=== PATIENT | female | born 1940 | race Caucasian/White ===

== ENCOUNTER → 2017-06-09 | Outpatient (CLI) | payer MEDICARE, OTHER ==
[2017-04-18 12:13] VITALS: BMI 33.5
[~2017-06-09] MED LIST: ACE3 PO; ACET650T40 PO; ACT PO; AMOX-559; AMOX125T10 PO; AMOX1TAB8 PO; ASCO-178 PO; ASP325 PO; AUG875 PO; CA C1TAB85 PO; CALC600T72 PO; CARB-127 PO; CEPH-13 PO; CEPH500C24 PO; CEPH500T7 PO; CHOL10005 PO; CIPR500T12 PO; CLOB15OI16 TP; DABI150C3 PO; DEN60I SUBQ; DIAZ-308 PO; DICL100G39 TP; DIPH-618 PO; DULO30CA6 PO; ENAL20TA99 PO; ESOM40CA42 PO; FERR160T22 PO; FERR220S15 PO; FLUT12HF2 INH; FLUT1DIS27 IH; FLUT9.9S; FURO-45 PO; FURO-47 PO; FURO40SO PO; GABA-547 PO; HYDR-385 PO; HYDR-4309 PO; IPRA3AMP37 IH; KET10 PO; LEVO-85 PO; LIDO76.5 TP; LOR5 PO; LOR5/325 PO; LYSI500T34 PO; METR-1 PO; MOMR ENA; MORP-181 PO; MULT-977 PO; MUPI15CR10 TP; Morphine Sulfate PO; NITR-105 PO; NYST15CR32 TP; OMEG-77 PO; OMEP-125; OMEP-125 PO; OMEP-137 PO; OMEP40CA48 PO; ONDA4TAB97 PO; OXYC-865 PO; OXYC10TA67 PO; OXYGEN INH; OXYGENHOME INH; PAIN MEDICATION; PANT40TA65 PO; PER PO; PNEU0.5D3 IM; PRAM0.2520 PO; PRE10 PO; PRE20 PO; PRED-1 PO; RIVA20TA PO; ROSU5TAB18 PEG; ROSU5TAB18 PO; SPIR25TA76 PO; SUCR1TAB51 PO; SUL500 PO; SULF-198 PO; SULF500T42; SULF500T48 PO; TIO18R IH; TRAM-627 PO; [UNRECOGNIZED DRUG - CODE] PO; [UNRECOGNIZED DRUG - CODE] PO; oxygen concentrator
[2017-06-09 15:09] LABS: PLATELET COUNT, AUTOMATED 229 K/uL (150-450)
[2017-06-09 15:18] LABS: INR 1.15
--- NOTE | 2017-06-09 15:32 | EKG ---
FACILITY: [facility] [place] PATIENT NAME: ATUL SPEAR : [id number] MR: [id number] V: [id number] EXAM DATE: ORDERING PHYSICIAN: DARLIN MITCHELL TECHNOLOGIST: Test Reason : Z01.818 Blood Pressure : / mmHG Vent. Rate : 074 BPM Atrial Rate : 036 BPM P-R Int : 000 ms QRS Dur : 084 ms QT Int : 430 ms P-R-T Axes : 000 082 -61 degrees QTc Int : 477 ms Atrial fibrillation Cannot rule out Anterior infarct , age undetermined ST and T wave abnormality, consider inferior ischemia and anterolateral ischemia Abnormal ECG Relatively unchanged from previous Confirmed by AMRIK SOMMERS ([id number]) on 06/10/2017 6:38:40 AM Referred By: Confirmed By:AMRIK SOMMERS
== END ==
LOC: LAB 14:35
PROVIDERS: ATTEND Neurological Surgery
DX: Z01.818 Encounter for other preprocedural examination (principal); Z01.812 Encounter for preprocedural laboratory examination; Z01.810 Encounter for preprocedural cardiovascular examination; I48.91 Unspecified atrial fibrillation; R94.31 Abnormal electrocardiogram [ECG] [EKG]; G89.29 Other chronic pain
CPT/HCPCS: 36415; 82040; 82247; 82310; 82374; 82435; 82565; 82947; 84075; 84132; 84155; 84295; 84450; 84460; 84520; 85025; 85610; 85730; 86850; 86900; 86901; 93005

== ENCOUNTER → 2017-08-13 | Outpatient (CLI) | payer MEDICARE, OTHER ==
[2017-04-18 12:13] VITALS: BMI 33.5
[2017-08-13 15:08] LABS: PLATELET COUNT, AUTOMATED 207 K/uL (150-450)
== END ==
LOC: LAB 14:40
PROVIDERS: ATTEND Neurological Surgery
DX: R29.898 Other symptoms and signs involving the musculoskeletal system (principal); Z96.89 Presence of other specified functional implants
CPT/HCPCS: 36415; 85025; 85651; 86140

== ENCOUNTER → 2017-10-09 | Outpatient (CLI) | payer MEDICARE, OTHER ==
[2017-04-18 12:13] VITALS: BMI 33.5
[~2017-10-09] MED LIST changes: +APIX5TAB PO; +ASCO-480 PO; +CALC-1 PO; +CHOL200074 PO; +CRAN500C11 PO; +DUL20 PO; +GUAI-652 PO; +GUAI600T57 PO; +MULT-27 PO; +NYST100016 PO; -OMEP-125; +PROBIOTIC PO; +[UNRECOGNIZED DRUG - CODE] PO; +[UNRECOGNIZED DRUG - OTHER] PO; +omega xl PO
== END ==
LOC: LAB 12:05
PROVIDERS: ATTEND Surgery
DX: C44.519 Basal cell carcinoma of skin of other part of trunk (principal)
CPT/HCPCS: 88305

== ENCOUNTER 2017-10-16 14:31 | Inpatient (IN) | payer MEDICARE, OTHER ==
[~2017-10-16] VITALS: Ht 156.2 cm; Wt 79.1 kg
[2017-10-16] VITALS (10 sets, daily range): BP systolic 111–128; BP diastolic 76–103; BMI 30.5
[2017-10-16] MEDS ORDERED: ONDANSETRON 4 MG/2 ML VIAL ONE (14:40)
--- NOTE | 2017-10-16 14:40 | ER Report ---
History and Physical Time Seen By MD: 14:40 Hx. of Stated Complaint: sick about a week. today she has a mental status change, lethargic, nausea, vomiting, "not acting normal" per her HPI/ROS This is a 76-year-old female with multiple medical problems. She was brought to the emergency department today by her family for increasing altered mental status the past 3-4 days. No trauma or falls. No fever chills. The patient is awake and alert per the family but seems much more fatigued the past few days. No nausea vomiting. The patient denies any complaints of pain. No shortness of breath. Remainder of the 14 system rev: Yes Allergies: Coded Allergies: rivaroxaban (Verified Allergy, Intermediate, RASH, 04/17/17) Quinolones (Verified Allergy, Mild, UNKNOWN, 04/17/17) fentanyl (Verified Allergy, Mild, UNKNOWN, 04/17/17) ciprofloxacin (Verified Allergy, Unknown, RASH, ITCHING, 04/17/17) influenza virus vaccine, specific (Verified Allergy, Unknown, UNKNOWN, ) Was told never to have another Uncoded Allergies: corticosteroids (Allergy, Unknown, 01/17/14) HAYFEVER (Adverse Reaction, Mild, WATERY EYES, 07/05/13) Home Meds Active Scripts Diazepam (DIAZEPAM) 5 Mg Tablet, 1 TAB PO BID Y for SPASMS, #30 TAB 0 Refills Prov:RUI HEMPHILL MD 10/14/17 Spironolactone (ALDACTONE) 25 Mg Tablet, 0.5 TAB PO DAILY, #45 TAB 3 Refills Prov:YESSENIA MILLER MD 10/09/17 Oxycodone Hcl/Acetaminophen (PERCOCET 5-325 MG TABLET) 1 Each Tablet, 1 TAB PO Q4-6H Y for PAIN, #120 TAB 0 Refills Prov:RUI HEMPHILL MD 10/05/17 Morphine Sulfate (MS CONTIN) 15 Mg Tablet.er, 15 MG PO Q12H, #60 TAB 0 Refills Prov:RUI HEMPHILL MD 10/05/17 Guaifenesin (MUCINEX) 600 Mg Tablet.er, 600 MG PO BID for 30 Days, #60 TAB Prov:YESSENIA MILLER MD 10/01/17 Duloxetine Hcl (CYMBALTA) 20 Mg Capcr, 20 MG PO QDAY for 30 Days, #30 CAP Prov:YESSENIA MILLER MD 10/01/17 Apixaban (ELIQUIS) 5 Mg Tablet, 1 TAB PO BID for 90 Days, #180 TAB 4 Refills Prov:YESSENIA MILLER MD 09/30/17 Diclofenac Sodium 1% Gel (VOLTAREN 1% GEL) 100 Gm Gel..gram., 4 G TP TID Y for pain, #1800 GM 1 Refill Apply 4 grams to right knee up to 3 times daily as needed for pain Prov:YESSENIA MILLER MD 09/29/17 Fluticasone/Salmeterol (ADVAIR 100-50 DISKUS) 1 Each Disk.w.dev, 1 EACH IH BID, #3 INHALER 3 Refills Prov:BIBI SPENCER APRN 07/03/17 Sulfasalazine (SULFASALAZINE) 500 Mg Tablet, 2 TAB PO QID, #500 TAB 3 Refills Take as directed Prov:RUI HEMPHILL MD 05/05/17 Sotalol Hcl (BETAPACE) 160 Mg Tablet, 0.5 TAB PO BID, #90 TAB 2 Refills Prov:BIBI SPENCER APRN 04/03/17 Pramipexole Di-Hcl (PRAMIPEXOLE DIHYDROCHLORIDE) 0.25 Mg Tablet, 0.25 MG PO QPM , #90 TAB 3 Refills Prov:BIBI SPENCER APRN 03/27/17 Furosemide (FUROSEMIDE) 20 Mg Tablet, 1 TAB PO QDAY, #90 TAB 2 Refills Prov:BIBI SPENCER APRN 12/15/16 Fluticasone Propionate (Flonase Allergy Relief) 9.9 Ml [place].susp, 2 EA NA DAILY , #3 BOTTLE 3 Refills Prov:BIBI SPENCER APRN 03/15/15 Reported Medications Guaifenesin/Pseudoephedrne Hcl (MUCINEX D ER 600-60 MG TABLET) 1 Each Tab.er.12h , 1 TAB PO BID 10/01/17 Phenazopyrid/Cran/Vit C/B.coag (Azo Urinary Tract Health Pack) 1 Each Tablet, 1 TAB PO DAILY 10/01/17 [Probiotic XL] No Conflict Check, 1 CAP PO DAILY 10/01/17 [Heart Strong] No Conflict Check, 1 CAP PO DAILY 10/01/17 [omega xl] 300 mg No Conflict Check, 1 CAP PO DAILY 10/01/17 Cranberry Extract (CRANBERRY) 500 Mg Capsule, 1 CAP PO DAILY, CAPSULE 10/01/17 Ascorbic Acid (VITAMIN C WITH MAYCOL HIPS) 1,000 Mg Tablet, 1 TAB PO DAILY 10/01/17 Mu-Vits-Min Th/Lycopene/Lutein (CENTRUM SILVER TABLET) 1 Each Tablet, 1 TAB PO DAILY 10/01/17 Calcium Carbonate/Vitamin D3 (CALTRATE 600 + D TABLET) 1 Each Tablet, 1 TAB PO DAILY Caltrate 600 Vit D3 800 10/01/17 Cholecalciferol (Vitamin D3) (VITAMIN D-3) 2,000 Unit Capsule, 1 CAP PO DAILY, CAPSULE 10/01/17 Omeprazole (OMEPRAZOLE) 20 Mg Capsule.dr, 1 CAP PO QDAY 04/06/17 Oxygen (OXYGEN) Inha, 1.5-2 L INH QDAY, L 04/06/17 Discontinued Scripts Spironolactone (ALDACTONE) 25 Mg Tablet, 0.5 TAB PO DAILY, #45 TAB 3 Refills Prov:BIBI SPENCER APRN TRANSPORTATION CONSULTANT-C 10/13/16 Reviewed Nurses Notes: Yes Old Medical Records Reviewed: Yes Hx Smoking: Yes Smoking Status: Former Smoker Exposure to Second Hand Smoke?: No Hx Substance Use Disorder: No Hx Alcohol Use: Yes Constitutional Vital Sign - Last 24 Hours 10/16/17 10/16/17 10/16/17 10/16/17 14:31 14:36 14:39 14:46 Temp 98.1 Pulse ??? 88 83 Resp 16 15 B/P (MAP) 122/87 122/87 (99) Pulse Ox 3 91 O2 Delivery Nasal Cannula 10/16/17 10/16/17 10/16/17 10/16/17 15:01 15:11 15:16 15:18 Pulse 97 88 Resp 15 13 B/P (MAP) 113/78 (90) Pulse Ox 90 89 O2 Flow Rate 3.0 10/16/17 10/16/17 10/16/17 10/16/17 15:30 15:31 15:46 16:00 Pulse 95 88 Resp 16 12 B/P (MAP) 105/86 (92) 119/84 (96) Pulse Ox 84 90 10/16/17 10/16/17 16:01 16:16 Pulse 96 97 Resp 14 13 Pulse Ox 89 89 Physical Exam General Appearance: The patient is alert, has no immediate need for airway protection and no signs of toxicity. Eyes: Pupils equal and round no pallor or injection. ENT, Mouth: Mucous membranes are moist. Lips are discolored and purple which family says is baseline Respiratory: There are no retractions, lungs are clear to auscultation. Cardiovascular: Irregular rate/irregular rhythm, systolic murmur Gastrointestinal: Abdomen is soft and non tender, no masses, bowel sounds normal. Neurological: awake and alert, no focal deficits Skin: Warm and dry, toes discolored b/l Neck is supple non tender. Extremities are nontender, nonswollen and have full range of motion. DIFFERENTIAL DIAGNOSIS: After history and physical exam differential diagnosis was considered for altered mental status including but not limited to hypoglycemia, infectious process, electrolyte abnormality, head injury and intoxicants. Medical Decision Making Data Points Result Diagram: 10/16/17 1430 10/16/17 1430 Laboratory Hematology Test 10/16/17 14:30 10/16/17 16:49 Red Blood Count 4.36 M/uL (4.17-5.56) Mean Corpuscular Volume 87.6 fL (80.0-96.0) Mean Corpuscular Hemoglobin 29.1 pg (26.0-33.0) Mean Corpuscular Hemoglobin Concent 33.2 g/dL (32.0-36.0) Red Cell Distribution Width 16.9 % (11.5-14.5) Mean Platelet Volume 8.3 fL (7.2-11.1) Neutrophils (%) (Auto) 76.2 % (39.4-72.5) Lymphocytes (%) (Auto) 5.7 % (17.6-49.6) Monocytes (%) (Auto) 15.3 % (4.1-12.4) Eosinophils (%) (Auto) 1.8 % (0.4-6.7) Basophils (%) (Auto) 1.0 % (0.3-1.4) Nucleated RBC Relative Count (auto) 0.1 /100WBC Neutrophils # (Auto) 5.6 K/uL (2.0-7.4) Lymphocytes # (Auto) 0.4 K/uL (1.3-3.6) Monocytes # (Auto) 1.1 K/uL (0.3-1.0) Eosinophils # (Auto) 0.1 K/uL (0.0-0.5) Basophils # (Auto) 0.1 K/uL (0.0-0.1) Nucleated RBC Absolute Count (auto) 0.00 K/uL Sodium Level 116 mmol/L (137-145) Potassium Level 4.4 mmol/L (3.5-5.0) Chloride Level 74 mmol/L (98-107) Carbon Dioxide Level 31 mmol/L (22-31) Blood Urea Nitrogen 5 mg/dl (7-18) Creatinine 0.60 mg/dl (0.52-1.04) Glomerular Filtration Rate Calc > 60.0 Random Glucose 99 mg/dl (75-110) Calcium Level 8.7 mg/dl (8.4-10.2) Magnesium Level 2.6 mg/dl (1.7-2.2) Total Bilirubin 1.5 mg/dl (0.2-1.3) Aspartate Amino Transf (AST/SGOT) 60 U/L (0-35) Alanine Aminotransferase (ALT/SGPT) 26 U/L (0-56) Alkaline Phosphatase 283 U/L (0-126) Total Creatine Kinase 90 U/L (30-135) Troponin I < 0.012 ng/ml Total Protein 7.9 gm/dl (6.3-8.2) Albumin 3.8 g/dl (3.5-5.0) Urine Color Mariela Urine Clarity Clear Urine pH 5.0 pH (4.8-9.5) Urine Specific [place] 1.020 Urine Protein Negative mg/dL (NEGATIVE) Urine Glucose (UA) Negative mg/dL (NEGATIVE) Urine Ketones Trace mg/dL (NEGATIVE) Urine Blood Negative (NEGATIVE) Urine Nitrite Negative (NEGATIVE) Urine Bilirubin Negative (NEGATIVE) Urine Urobilinogen Negative mg/dL (0.2-1.9) Urine Leukocyte Esterase Negative (NEGATIVE) Urine RBC None /HPF (0-2/HPF) Urine WBC 1 /HPF (0-5/HPF) Urine Squamous Epithelial Cells Few /LPF (NONE-FEW) Urine Bacteria Negative /HPF (NONE-FEW) Urine Hyaline Casts Few /LPF (NONE-FEW) Urine Mucus None /HPF (NONE-FEW) Urine Random Sodium 6 MEQ/L Chemistry Test 10/16/17 14:30 10/16/17 16:49 White Blood Count 7.4 k/uL (4.5-11.0) Red Blood Count 4.36 M/uL (4.17-5.56) Hemoglobin 12.7 g/dL (12.0-16.0) Hematocrit 38.2 % (34.0-47.0) Mean Corpuscular Volume 87.6 fL (80.0-96.0) Mean Corpuscular Hemoglobin 29.1 pg (26.0-33.0) Mean Corpuscular Hemoglobin Concent 33.2 g/dL (32.0-36.0) Red Cell Distribution Width 16.9 % (11.5-14.5) Platelet Count 275 K/uL (150-450) Mean Platelet Volume 8.3 fL (7.2-11.1) Neutrophils (%) (Auto) 76.2 % (39.4-72.5) Lymphocytes (%) (Auto) 5.7 % (17.6-49.6) Monocytes (%) (Auto) 15.3 % (4.1-12.4) Eosinophils (%) (Auto) 1.8 % (0.4-6.7) Basophils (%) (Auto) 1.0 % (0.3-1.4) Nucleated RBC Relative Count (auto) 0.1 /100WBC Neutrophils # (Auto) 5.6 K/uL (2.0-7.4) Lymphocytes # (Auto) 0.4 K/uL (1.3-3.6) Monocytes # (Auto) 1.1 K/uL (0.3-1.0) Eosinophils # (Auto) 0.1 K/uL (0.0-0.5) Basophils # (Auto) 0.1 K/uL (0.0-0.1) Nucleated RBC Absolute Count (auto) 0.00 K/uL Glomerular Filtration Rate Calc > 60.0 Calcium Level 8.7 mg/dl (8.4-10.2) Magnesium Level 2.6 mg/dl (1.7-2.2) Total Bilirubin 1.5 mg/dl (0.2-1.3) Aspartate Amino Transf (AST/SGOT) 60 U/L (0-35) Alanine Aminotransferase (ALT/SGPT) 26 U/L (0-56) Alkaline Phosphatase 283 U/L (0-126) Total Creatine Kinase 90 U/L (30-135) Troponin I < 0.012 ng/ml Total Protein 7.9 gm/dl (6.3-8.2) Albumin 3.8 g/dl (3.5-5.0) Urine Color Mariela Urine Clarity Clear Urine pH 5.0 pH (4.8-9.5) Urine Specific [place] 1.020 Urine Protein Negative mg/dL (NEGATIVE) Urine Glucose (UA) Negative mg/dL (NEGATIVE) Urine Ketones Trace mg/dL (NEGATIVE) Urine Blood Negative (NEGATIVE) Urine Nitrite Negative (NEGATIVE) Urine Bilirubin Negative (NEGATIVE) Urine Urobilinogen Negative mg/dL (0.2-1.9) Urine Leukocyte Esterase Negative (NEGATIVE) Urine RBC None /HPF (0-2/HPF) Urine WBC 1 /HPF (0-5/HPF) Urine Squamous Epithelial Cells Few /LPF (NONE-FEW) Urine Bacteria Negative /HPF (NONE-FEW) Urine Hyaline Casts Few /LPF (NONE-FEW) Urine Mucus None /HPF (NONE-FEW) Urine Random Sodium 6 MEQ/L Urinalysis Test 10/16/17 16:49 Urine Color Mar[place]a Urine Clarity Clear Urine pH 5.0 pH (4.8-9.5) Urine Specific [place] 1.020 Urine Protein Negative mg/dL (NEGATIVE) Urine Glucose (UA) Negative mg/dL (NEGATIVE) Urine Ketones Trace mg/dL (NEGATIVE) Urine Blood Negative (NEGATIVE) Urine Nitrite Negative (NEGATIVE) Urine Bilirubin Negative (NEGATIVE) Urine Urobilinogen Negative mg/dL (0.2-1.9) Urine Leukocyte Esterase Negative (NEGATIVE) Urine RBC None /HPF (0-2/HPF) Urine WBC 1 /HPF (0-5/HPF) Urine Squamous Epithelial Cells Few /LPF (NONE-FEW) Urine Bacteria Negative /HPF (NONE-FEW) Urine Hyaline Casts Few /LPF (NONE-FEW) Urine Mucus None /HPF (NONE-FEW) Urine Random Sodium 6 MEQ/L ED Course/Re-evaluation ED Course 76-year-old female with multiple medical problems presents to the emergency department with family for altered mental status and increasing fatigue over the past 3-4 days. The patient is alert and oriented and can hold a conversation , but does seem overly fatigued and slowed. No fever or chills, and no acute pain complaints. She has a sodium of 116 of an unknown cause. Urine electrolytes and osmols were sent to help with diagnosis. Her creatinine is normal. At this time there is an unknown source for her hyponatremia. This is to find the source of her symptoms. She will be admitted to the ICU, and is currently on gentle normal saline fluid replacement. Decision to Disposition Date: October 16, 2017 Decision to Disposition Time: 18:04 Depart Departure Latest Vital Signs Vital Signs Date Time Temp Pulse Resp B/P (MAP) Pulse Ox O2 Delivery O2 Flow Rate FiO2 10/16/17 16:16 97 13 89 10/16/17 16:00 119/84 (96) 10/16/17 15:11 3.0 10/16/17 14:36 98.1 Nasal Cannula Impression: Primary Impression: Hyponatremia Condition: Improved Disposition: Admitted from ER Referrals: YESSENIA MILLER MD (PCP) DANIELLE JESSICA MD October 16, 2017 14:40
[2017-10-16 16:15] LABS: PLATELET COUNT, AUTOMATED 275 K/uL (150-450)
--- NOTE | 2017-10-16 16:40 | RADIOLOGY IMAGING REPORT ---
FACILITY: [facility] PATIENT NAME: Stephanie Warner : 1940 MR: [id number] V: [id number] EXAM DATE: ORDERING PHYSICIAN: DANIELLE JESSICA TECHNOLOGIST: Location: [facility] [place] Patient: Stephanie Warner : 1940 Visit/Account:[id number] Date of Sevice: 10/16/2017 CHEST SINGLE AP COMPARISONS: 2 view chest dated April 17, 2017 ADDITIONAL PERTINENT HISTORY: Respiratory distress FINDINGS: Cardiomediastinal silhouette: Moderate cardiomegaly. This is stable from previous exam. Pulmonary vasculature: Atherosclerotic disease of the thoracic aortic arch. Otherwise negative Lung abarca: Scarring involving the right lung base. Opacity at the left lung base is stable from p revious exam likely representing either scarring or atelectatic change related to the large hiatal he rnia. Pleural spaces: Findings suggestive of pleural thickening at the left lung base. Osseous structures: Osteoarthritic changes involving both shoulders. Surrounding soft tissues: Intrathecal stimulating device in place. IMPRESSION: No change since previous exam Report Dictated By: Vish Colby MD at 10/16/2017 4:35 PM Report E-Signed By: Vish Colby MD at 10/16/2017 4:37 PM WSN:[id number]
--- NOTE | 2017-10-16 16:42 | EKG ---
FACILITY: [facility] PATIENT NAME: ATUL SPEAR : [id number] MR: [id number] V: [id number] EXAM DATE: ORDERING PHYSICIAN: DANIELLE JESSICA TECHNOLOGIST: AALIYAH Dalton Reason : Blood Pressure : / mmHG Vent. Rate : 086 BPM Atrial Rate : 312 BPM P-R Int : 000 ms QRS Dur : 086 ms QT Int : 406 ms P-R-T Axes : 000 106 058 degrees QTc Int : 485 ms Atrial fibrillation Basically not able to interpret this EKG due to interference. When compared with ECG of 09-JUN-2017 15:18, ST no longer depressed in Inferior leads ST now depressed in Lateral leads Nonspecific T wave abnormality has replaced inverted T waves in Inferior leads Confirmed by ELLI SMITH ([id number]) on 10/16/2017 8:45:37 PM Referred By: JASKARAN Confirmed By:ELLI SMITH
[2017-10-16] MEDS ORDERED: NS(*) 0.9% 1000 ML BAG 1,000 ML IV ONE (16:50)
--- NOTE | 2017-10-16 16:53 | RADIOLOGY IMAGING REPORT ---
FACILITY: [facility] PATIENT NAME: Stephanie Warner : 1940 MR: [id number] V: [id number] EXAM DATE: ORDERING PHYSICIAN: DANIELLE JESSICA TECHNOLOGIST: Location: [facility] [place] Patient: Stephanie Warner : 1940 Visit/Account:[id number] Date of Sevice: 10/16/2017 HEAD W/O CONTRAST Provided history: Altered mental status Additional pertinent history: none TECHNIQUE: Imaging was obtained from the skull base through the vertex without intravenous contrast. Source images were reformatted in the coronal sagittal planes. One of the following dose optimization techniques was utilized in the performance of this exam: Autom ated exposure control; adjustment of the mA and/or kV according to the patient's size; or use of an i terative reconstruction technique. Specific details can be referenced in the facility's radiology CT exam operational policy. 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 Hemorrhage: None Masses / edema: None White matter: Moderate nonspecific peripheral white matter hypodensities there is also generalized d ecreased density in the white matter throughout both hemispheres of questionable significance. Vessels: Although the distal right middle cerebral artery is relatively dense, it is isodense with b lood in the venous sinuses and probably not reflective of thrombosis. Extra-axial: None significant Calvarium / scalp: Negative Skull base: negative Visualized sinuses / orbits: Broad air-fluid level right maxillary sinus. Focal mucosal prominence o bscures the right OMC. IMPRESSION: 1. No evidence of hemorrhage, mass or acute ischemia. 2. White matter changes that are nonspecific but likely from long-standing small vessel disease. 3. Potential acute sinusitis right maxillary sinus. Correlate clinically. Report Dictated By: Cade Overton MD at 10/16/2017 4:44 PM Report E-Signed By: Cade Overton MD at 10/16/2017 4:50 PM WSN:[id number]
--- NOTE | 2017-10-16 18:30 | History & Physical ---
History of Present Illness Chief Complaint Lethargic History of Present Illness This patient was brought to the emergency department by family members for increasing lethargy. Her family reports that she has been more lethargic over the last several days. They have also reported that she has had decreased intake of food and fluids. They have not noted any nausea or diarrhea. History Problems: (1) Ulcerative colitis Status: Chronic (2) Atrial fibrillation Status: Chronic (3) COPD (chronic obstructive pulmonary disease) Status: Chronic (4) Moderate to severe pulmonary hypertension Status: Chronic (5) Depression (6) S/P insertion of spinal cord stimulator Status: Chronic (7) H/O total colectomy Status: Chronic Home Meds Active Scripts Diazepam (DIAZEPAM) 5 Mg Tablet, 1 TAB PO BID Y for SPASMS, #30 TAB 0 Refills Prov:RUI HEMPHILL MD 10/14/17 Spironolactone (ALDACTONE) 25 Mg Tablet, 0.5 TAB PO DAILY, #45 TAB 3 Refills Prov:YESSENIA MILLER MD 10/09/17 Oxycodone Hcl/Acetaminophen (PERCOCET 5-325 MG TABLET) 1 Each Tablet, 1 TAB PO Q4-6H Y for PAIN, #120 TAB 0 Refills Prov:RUI HEMPHILL MD 10/05/17 Morphine Sulfate (MS CONTIN) 15 Mg Tablet.er, 15 MG PO Q12H, #60 TAB 0 Refills Prov:RUI HEMPHILL MD 10/05/17 Guaifenesin (MUCINEX) 600 Mg Tablet.er, 600 MG PO BID for 30 Days, #60 TAB Prov:YESSENIA MILLER MD 10/01/17 Duloxetine Hcl (CYMBALTA) 20 Mg Capcr, 20 MG PO QDAY for 30 Days, #30 CAP Prov:YESSENIA MILLER MD 10/01/17 Apixaban (ELIQUIS) 5 Mg Tablet, 1 TAB PO BID for 90 Days, #180 TAB 4 Refills Prov:YESSENIA MILLER MD 09/30/17 Diclofenac Sodium 1% Gel (VOLTAREN 1% GEL) 100 Gm Gel..gram., 4 G TP TID Y for pain, #1800 GM 1 Refill Apply 4 grams to right knee up to 3 times daily as needed for pain Prov:YESSENIA MILLER MD 09/29/17 Fluticasone/Salmeterol (ADVAIR 100-50 DISKUS) 1 Each Disk.w.dev, 1 EACH IH BID, #3 INHALER 3 Refills Prov:BIBI SPENCER APRN 07/03/17 Sulfasalazine (SULFASALAZINE) 500 Mg Tablet, 2 TAB PO QID, #500 TAB 3 Refills Take as directed Prov:RUI HEMPHILL MD 05/05/17 Sotalol Hcl (BETAPACE) 160 Mg Tablet, 0.5 TAB PO BID, #90 TAB 2 Refills Prov:BIBI SPENCER APRN 04/03/17 Pramipexole Di-Hcl (PRAMIPEXOLE DIHYDROCHLORIDE) 0.25 Mg Tablet, 0.25 MG PO QPM , #90 TAB 3 Refills Prov:BIBI SPENCER APRN 03/27/17 Furosemide (FUROSEMIDE) 20 Mg Tablet, 1 TAB PO QDAY, #90 TAB 2 Refills Prov:BIBI SPENCER APRN 12/15/16 Fluticasone Propionate (Flonase Allergy Relief) 9.9 Ml [place].susp, 2 EA NA DAILY , #3 BOTTLE 3 Refills Prov:BIBI SPENCER APRN 03/15/15 Reported Medications Guaifenesin/Pseudoephedrne Hcl (MUCINEX D ER 600-60 MG TABLET) 1 Each Tab.er.12h , 1 TAB PO BID 10/01/17 Phenazopyrid/Cran/Vit C/B.coag (Azo Urinary Tract Health Pack) 1 Each Tablet, 1 TAB PO DAILY 10/01/17 [Probiotic XL] No Conflict Check, 1 CAP PO DAILY 10/01/17 [Heart Strong] No Conflict Check, 1 CAP PO DAILY 10/01/17 [omega xl] 300 mg No Conflict Check, 1 CAP PO DAILY 10/01/17 Cranberry Extract (CRANBERRY) 500 Mg Capsule, 1 CAP PO DAILY, CAPSULE 10/01/17 Ascorbic Acid (VITAMIN C WITH MAYCOL HIPS) 1,000 Mg Tablet, 1 TAB PO DAILY 10/01/17 Mu-Vits-Min Th/Lycopene/Lutein (CENTRUM SILVER TABLET) 1 Each Tablet, 1 TAB PO DAILY 10/01/17 Calcium Carbonate/Vitamin D3 (CALTRATE 600 + D TABLET) 1 Each Tablet, 1 TAB PO DAILY Caltrate 600 Vit D3 800 10/01/17 Cholecalciferol (Vitamin D3) (VITAMIN D-3) 2,000 Unit Capsule, 1 CAP PO DAILY, CAPSULE 10/01/17 Omeprazole (OMEPRAZOLE) 20 Mg Capsule.dr, 1 CAP PO QDAY 04/06/17 Oxygen (OXYGEN) Inha, 1.5-2 L INH QDAY, L 04/06/17 Discontinued Scripts Spironolactone (ALDACTONE) 25 Mg Tablet, 0.5 TAB PO DAILY, #45 TAB 3 Refills Prov:BIBI SPENCER APRN [employer]-C 10/13/16 Allergies: Coded Allergies: rivaroxaban (Verified Allergy, Intermediate, RASH, 04/17/17) Quinolones (Verified Allergy, Mild, UNKNOWN, 04/17/17) fentanyl (Verified Allergy, Mild, UNKNOWN, 04/17/17) ciprofloxacin (Verified Allergy, Unknown, RASH, ITCHING, 04/17/17) influenza virus vaccine, specific (Verified Allergy, Unknown, UNKNOWN, ) Was told never to have another Uncoded Allergies: corticosteroids (Allergy, Unknown, 01/17/14) HAYFEVER (Adverse Reaction, Mild, WATERY EYES, 07/05/13) Hx Smoking: Yes Smoking Status: Former Smoker Exposure to Second Hand Smoke?: No Caffeine Intake: Coffee Caffeine/Cups Per Day: 1 Hx Alcohol Use: Yes Hx Substance Use Disorder: No Social Drug Use: Never Review of Systems All Systems Reviewed/Normal: Yes, Except as Noted Neurological: Confusion Exam Vital Signs Vital Signs Date Time Temp Pulse Resp B/P (MAP) Pulse Ox O2 Delivery O2 Flow Rate FiO2 10/16/17 16:16 97 13 89 10/16/17 16:00 119/84 (96) 10/16/17 15:11 3.0 10/16/17 14:36 98.1 Nasal Cannula Neuro: Other (Lethargic, but no focal deficits.) Eyes: PERRLA Cardiovascular: Regular Rate and Rhythm Respiratory: Clear to Auscultation GI: Abd Soft and Non-Tender Extremities: No Edema Integumentary: No Cyanosis Medical Decision Making Data Points Result Diagram: 10/16/17 1430 10/16/17 1430 Item Value Date Time Urine Specific [place] 1.020 10/16/17 164 Urine Osmolality 468 mosm/K L 10/16/17 164 Urine Random Sodium 6 MEQ/L 10/16/17 164 EKG / Imaging EKG Interpretation EKG reviewed. Imaging CT head and chest x-ray reviewed. Assessment and Plan Problems: (1) Hyponatremia Status: Acute Assessment & Plan: She was found to have a severely low serum sodium. This is likely secondary to dehydration and compounded by her history of colectomy and diuretic use. She has received normal saline in the emergency department. We will repeat a chemistry panel once she arrives to the floor and then determine if 3% saline is required. (2) Altered mental status Assessment & Plan: Likely secondary to above. (3) Atrial fibrillation and flutter Status: Chronic Assessment & Plan: She is on chronic treatment with sotalol and Eliquis. (4) Moderate to severe pulmonary hypertension Status: Chronic Assessment & Plan: An echocardiogram for April 2017 showed an elevated right ventricular pressure of 111mmHg. (5) Depression Assessment & Plan: She had been started on duloxetine recently, but reportedly stopped this after 3 days. (6) COPD (chronic obstructive pulmonary disease) Status: Chronic Assessment & Plan: She is on chronic treatment with Advair. Copies to: YESSENIA MILLER MD Venous Thromboembolism Antithrombotics Is Pt On Any Antithrombotics?: Yes Exam Sepsis Risk: No Definite Risk RUI ANDERSON DO October 16, 2017 18:29
[2017-10-16] MEDS ORDERED: NS(*) 0.9% 1000 ML BAG 1,000 ML IV PRN ×2 (20:00→23:22)
[2017-10-16] MEDS: SOTALOL HCL 80 MG TAB PO SCH (20:32)
[2017-10-16] MEDS: MORPHINE CR 15 MG TABCR PO SCH (20:32)
[2017-10-16] MEDS: sulfaSALAzine 500 MG TAB PO SCH (20:32)
[2017-10-16] MEDS: guaiFENesin 600 MG TABCR PO SCH (20:32)
[2017-10-16] MEDS: APIXABAN 2.5 MG TABLET PO SCH (20:33)
[2017-10-16] MEDS: SALMETEROL/FLUTIC 100/50 1 INH INH SCH (21:32)
[2017-10-16] MEDS ORDERED: NS 3% 500 ML BAG 100 ML IV ONE ×2 (23:25→23:30)
[2017-10-17] VITALS (27 sets, daily range): BP systolic 88–131; BP diastolic 66–97
[2017-10-17] MEDS ORDERED: NS 3% IV ONE (01:55)
[2017-10-17 05:12] LABS: PLATELET COUNT, AUTOMATED 244 K/uL (150-450)
[2017-10-17] MEDS: SALMETEROL/FLUTIC 100/50 1 INH INH SCH ×2 (06:00→17:03)
[2017-10-17] MEDS ORDERED: NS 3% 500 ML BAG 500 ML IV PRN (07:10)
[2017-10-17] MEDS ORDERED: PROMETHAZINE 25 MG/ML 1 ML AMP IVP PRN (07:15)
[2017-10-17] MEDS: MORPHINE CR 15 MG TABCR PO SCH ×2 (09:32→20:20)
[2017-10-17] MEDS: guaiFENesin 600 MG TABCR PO SCH ×2 (09:34→20:20)
[2017-10-17] MEDS: APIXABAN 2.5 MG TABLET PO SCH ×2 (09:35→20:20)
[2017-10-17] MEDS: sulfaSALAzine 500 MG TAB PO SCH ×4 (09:39→20:20)
[2017-10-17] MEDS: PANTOPRAZOLE SOD 40 MG TABEC PO SCH (09:39)
[2017-10-17] MEDS: SOTALOL HCL 80 MG TAB PO SCH ×2 (09:39→20:20)
--- NOTE | 2017-10-17 09:49 | Hospitalist Progress Note ---
Subjective Progress Notes Subjective This patient was admitted for hyponatremia. She had no acute changes overnight. Patient Complains of: Cardiovascular: No: Chest Pain Respiratory: No: Shortness of Breath Physical Exam Vital Signs Date Time Temp Pulse Resp B/P (MAP) Pulse Ox O2 Delivery O2 Flow Rate FiO2 10/17/17 06:00 100 17 131/89 (103) 96 High-Flow Nasal Cannula 5.0 10/17/17 05:00 50.0 10/17/17 03:00 97.5 Neuro: Other (Lethargy has improved some, but she still has slowed speech and delayed reaction.) Cardiovascular: Regular Rate and Rhythm Respiratory: Clear to Auscultation Extremities: No Edema Integumentary: No Cyanosis Result Diagram: 10/17/17 0500 10/17/17 0500 Assessment and Plan Problems: (1) Hyponatremia Status: Acute Assessment & Plan: She was found to have a severely low serum sodium. This was likely secondary to dehydration and compounded by her history of colectomy and diuretic use. She received several doses of 3% saline overnight, but has only slightly corrected. We will be placing her on a 3% saline infusion over the next several hours. A repeat chemistry is ordered for the early afternoon. (2) Altered mental status Assessment & Plan: Likely secondary to above. (3) Atrial fibrillation and flutter Status: Chronic Assessment & Plan: She is on chronic treatment with sotalol and Eliquis. (4) Moderate to severe pulmonary hypertension Status: Chronic Assessment & Plan: An echocardiogram from April 2017 showed an elevated right ventricular pressure of 111mmHg. Daily weights are ordered. (5) Depression Assessment & Plan: She had been started on duloxetine recently, but reportedly stopped this after 3 days. (6) COPD (chronic obstructive pulmonary disease) Status: Chronic Assessment & Plan: She is on chronic treatment with Advair. Exam Sepsis Risk: No Definite Risk RUI ANDERSON DO October 17, 2017 09:49
[2017-10-17] MEDS ORDERED: NS 3% 500 ML BAG 500 ML IV SCH (15:00)
[2017-10-17] MEDS: HYPROMELLOSE 0.4% LUB 15ML BTL OU PRN ×2 (17:25→20:03)
[2017-10-18] VITALS (23 sets, daily range): BP systolic 92–129; BP diastolic 62–94; Ht 156.2 cm; Wt 79.1 kg
[2017-10-18] MEDS: HYPROMELLOSE 0.4% LUB 15ML BTL OU PRN ×3 (00:37→20:23)
[2017-10-18 05:21] LABS: PLATELET COUNT, AUTOMATED 254 K/uL (150-450)
[2017-10-18] MEDS: SALMETEROL/FLUTIC 100/50 1 INH INH SCH ×2 (05:34→17:04)
[2017-10-18] MEDS ORDERED: NS(*) 0.9% 1000 ML BAG 1,000 ML IV PRN ×2 (06:45→07:57)
--- NOTE | 2017-10-18 08:24 | Hospitalist Progress Note ---
Subjective Progress Notes Subjective The patient reports some mild legs discomfort. She did sleep well overnight. UOP is low, per staff. Physical Exam Vital Signs Date Time Temp Pulse Resp B/P (MAP) Pulse Ox O2 Delivery O2 Flow Rate FiO2 10/18/17 08:03 90 High-Flow Nasal Cannula 3.5 10/18/17 07:12 93 10/18/17 07:00 12 109/79 (89) 10/18/17 03:00 97.0 10/17/17 09:00 50.0 General Appearance: Alert, Awake, No Acute Distress Neuro: No Gross deficits (Knows where she is and why she is here.) Cardiovascular: Other (Irreg, irreg, no m/r/g) Respiratory: Clear to Auscultation Extremities: Warm, Perfused, No Edema Integumentary: No Jaundice Result Diagram: 10/18/1750910/18/17509 Assessment and Plan Problems: (1) Hyponatremia Status: Acute Assessment & Plan: She presented with 3-4 days of worsening mental status. She was found to have a severely low serum sodium. This was likely secondary to dehydration and compounded by her history of colectomy and diuretic use. She had received Cymbalta starting on 10/01, but she didn't take very long secondary to nausea. She has received 900cc of 3% saline. Na is improving at a slow rate despite the large amounts of 3%. Switching to NS at 100cc/hour. BMP at noon. Will repeat urine studies. (2) Altered mental status Assessment & Plan: Improving, but still slowed. Likely secondary to above. (3) Atrial fibrillation and flutter Status: Chronic Assessment & Plan: She is on chronic treatment with sotalol and Eliquis. (4) Moderate to severe pulmonary hypertension Status: Chronic Assessment & Plan: An echocardiogram from April 2017 showed an elevated right ventricular pressure of 111mmHg. Daily weights are ordered. (5) Depression Assessment & Plan: She had been started on duloxetine recently, but reportedly stopped this after 3 days. (6) COPD (chronic obstructive pulmonary disease) Status: Chronic Assessment & Plan: She is on chronic treatment with Advair. Exam Sepsis Risk: No Definite Risk AMRIK SOMMERS MD October 18, 2017 08:24
[2017-10-18] MEDS: sulfaSALAzine 500 MG TAB PO SCH ×4 (09:11→20:15)
[2017-10-18] MEDS: guaiFENesin 600 MG TABCR PO SCH ×2 (09:11→20:15)
[2017-10-18] MEDS: SOTALOL HCL 80 MG TAB PO SCH ×2 (09:12→20:15)
[2017-10-18] MEDS: PANTOPRAZOLE SOD 40 MG TABEC PO SCH (09:12)
[2017-10-18] MEDS: APIXABAN 2.5 MG TABLET PO SCH ×2 (09:12→20:15)
[2017-10-18] MEDS: MORPHINE CR 15 MG TABCR PO SCH ×2 (09:12→20:15)
--- NOTE | 2017-10-18 11:16 | Medical Nutrition Therapy ---
Nutrition Anthropometrics Height (Inches): 61.50 Height (Calculated Centimeters: 156.627573 Weight (Pounds): 164 Weight (Calculated Kilograms): 74.729 BMI Calculated: 30.48 Storm Nutrition Score: Adequate Storm Nutrition Risk Score: 16 Dietary Referral Nutrition Risk Factors: Special Diet Nutrition Risk Comment: POOR APPETITE Physical Findings Physical Appearance: Obese BMI 30-39 Skin Appearance Skin Appearance: Edema Edema Location Modifier: Edema Location: Type of Edema: Degree of Edema: Gastrointestinal Symptoms GI Symtoms: Nausea Tube Present: Bowel Sounds: Recent Bowel Pattern: Colostomy Stool Characteristics: Nutrition/Food History Decreased Appetite Nutritional Diagnosis Nutritional Risk Acuity 2: Ileostomy Nutritional Risk Acuity 3: GERD Past Medical History: GERD, ulcerative colitis, ileostomy, COPD, CAD, IBD, Small bowel resection, parastomal hernia, HTN, celiac disease Nutritional Acuity: 2-Moderate Nutrition Diagnosis: Inadequate Food Intake Nutrition Etiology: Physiological Causes Nutrition Problem/Etiology/Sym: Inadequate Oral Intake related to decreased ability to consume sufficient energy, e.g. decreased appetite AEB reports of insufficient intake of energy from diet when compared to requirements. Energy Requirement: 1650 (Owsley-St Jeor: Actual BW X 1.4) Protein Requirement: 60 (Actual BW Kg X .8) Fluid Requirement: 1650 Diet Type: Diet as Tolerated ROBIN/REG Nutrition Intervention: Cont diet as ordered, Encourage intake Nutrition Monitoring & Eval Nutrition Goals: Eat 75-100% Meal RD Patient Assessment Time: [address] Assessment Type: RD Assessment Patient Nutrition Acuity: 2-Moderate Follow Up Date: October 18, 2017 Nutritional Comment: 10/16 Pt admitted for Hyponatremia. Na+ 116, Mg 2.6, Alk Phos 283. Class I obesity with BMI of 30.6. Receiving ROBIN with no reports of intake. Follow labs, intake, etc.-DRT 10/18 Na+ level slowly increasing and now at 125. Glu 114, Ca+ 8.1. Pt seems to be tolerating ROBIN - 2 trays left in care of nurse and 1 meal consumed at 100%. Encourage intake, follow labs, etc, -DRDEWEY ARIAS October 18, 2017 11:16
[2017-10-19] VITALS (24 sets, daily range): BP systolic 109–129; BP diastolic 75–99
[2017-10-19] MEDS: HYPROMELLOSE 0.4% LUB 15ML BTL OU PRN (00:18)
[2017-10-19] MEDS: SALMETEROL/FLUTIC 100/50 1 INH INH SCH ×2 (05:42→17:09)
[2017-10-19] MEDS: MORPHINE CR 15 MG TABCR PO SCH (09:24)
[2017-10-19] MEDS: APIXABAN 2.5 MG TABLET PO SCH ×2 (09:24→20:35)
[2017-10-19] MEDS: SOTALOL HCL 80 MG TAB PO SCH (09:24)
[2017-10-19] MEDS: PANTOPRAZOLE SOD 40 MG TABEC PO SCH (09:24)
[2017-10-19] MEDS: guaiFENesin 600 MG TABCR PO SCH ×2 (09:24→20:35)
[2017-10-19] MEDS: sulfaSALAzine 500 MG TAB PO SCH ×4 (09:24→20:34)
--- NOTE | 2017-10-19 10:21 | Hospitalist Progress Note ---
Subjective Progress Notes Subjective She is somewhat lethargic, but will open eyes and answer questions. No fevers. Appetite is poor. Physical Exam Vital Signs Date Time Temp Pulse Resp B/P (MAP) Pulse Ox O2 Delivery O2 Flow Rate FiO2 10/19/17 07:10 92 High-Flow Nasal Cannula 4.0 10/19/17 07:00 106 15 114/85 (95) 10/19/17 04:00 97.0 10/18/17 20:26 40.0 Intake and Output 10/20/17 07:00 Intake Total 218 ml Balance 218 ml IV Total 218 ml General Appearance: Other (somewhat somnolent) Neuro: Other (generalized weakness/no focal deficits) Cardiovascular: Other (Irregular with systolic murmur) Respiratory: Other (diminished breath sounds bilaterally, but equal/no rales) Chest: No Tenderness GI: Soft and Non-Tender Extremities: Warm, Perfused Integumentary: Generalized Fragile Skin Result Diagram: 10/18/17 0510 10/19/17 0513 Assessment and Plan Problems: (1) Hyponatremia Status: Acute Assessment & Plan: She presented with 3-4 days of worsening mental status. She was found to have a severely low serum sodium. This was likely secondary to dehydration and compounded by her history of colectomy and diuretic use. She had received Cymbalta starting on 10/01, but she didn't take very long secondary to nausea. She has received 900cc of 3% saline and has been switched to normal saline. Na+ has been improving at a slow rate. Repeat urine studies show continued slight concentrated urine. Will check echocardiogram as she could very easily now have LV dysfunction in addition to her longstanding severe pulmonary HTN. Will also check TSH. (2) Altered mental status Assessment & Plan: Improved, but still not to her baseline. Will check ABG to see if she has some CO2 retention. (3) Atrial fibrillation and flutter Status: Chronic Assessment & Plan: She is in chronic a-fib. She has been on chronic treatment with sotalol and Eliquis. Will now stop the sotalol as she is in persistent a- fib. (4) Moderate to severe pulmonary hypertension Status: Chronic Assessment & Plan: An echocardiogram from April 2017 showed an elevated right ventricular pressure of 111mmHg. Daily weights are ordered. (5) Depression Assessment & Plan: She had been started on duloxetine recently, but reportedly stopped this after 3 days. (6) COPD (chronic obstructive pulmonary disease) Status: Chronic Assessment & Plan: She is on chronic treatment with Advair. Exam Sepsis Risk: No Definite Risk TOVA CLARK MD October 19, 2017 10:21
[2017-10-19] MEDS ORDERED: ACETAMINOPHEN(*)1000 MG/100 ML 100 ML IVPB PRN (19:20)
[2017-10-19] MEDS: NS(*) 0.9% 1000 ML BAG 1,000 ML IV PRN (20:33)
[2017-10-20] VITALS (40 sets, daily range): BP systolic 94–161; BP diastolic 59–120
[2017-10-20 05:29] LABS: PLATELET COUNT, AUTOMATED 278 K/uL (150-450)
[2017-10-20] MEDS: SALMETEROL/FLUTIC 100/50 1 INH INH SCH (06:00)
--- NOTE | 2017-10-20 06:32 | RADIOLOGY IMAGING REPORT ---
FACILITY: [facility] [place] PATIENT NAME: Stephanie Warner : 1940 MR: [id number] V: [id number] EXAM DATE: ORDERING PHYSICIAN: TOVA CLARK TECHNOLOGIST: Location: [facility] Patient: Stephanie Warner : 1940 Visit/Account:[id number] Date of Sevice: 10/20/2017 CHEST SINGLE AP Additional pertinent History: Hypoxia COMPARISON STUDIES: 10/16/2017 FINDINGS: Support lines and catheters: EKG wire leads Lungs and Pleura: Bilateral lower lobe opacities obscuring both hemidiaphragms. The finding left low er lung is fairly comparable to the previous study compatible with effusion and underlying volume los s/consolidative change. Finding in the right lower lung compatible with a developing effusion with pr obable underlying atelectasis and volume loss as well. Heart and vasculature: Heart is enlarged. Central vasculature is mildly engorged. Mild perihilar int erstitial pulmonary edema pattern suggested Carlene and Mediastinum: Negative. Bones and Chest wall: Negative. Upper Abdomen: IMPRESSION: 1. Cardiomegaly with what appears to be an increasing mild central vascular pulmonary vascular conges tion and interstitial pulmonary edema pattern. 2. Increasing right effusion now obscuring the right hemidiaphragm. Probable underlying volume loss/a telectatic lung changes well 3. Basically unchanged opacity at the left base compatible with volume loss consolidation and effusio n. Report Dictated By: Sean Nascimento MD at 10/20/2017 6:24 AM Report E-Signed By: Sean Nascimento MD at 10/20/2017 6:28 AM WSN:[id number]
[2017-10-20] MEDS ORDERED: FUROSEMIDE 40 MG/4 ML VIAL IVP ONE ×2 (07:50→18:00)
[2017-10-20] MEDS ORDERED: BUDESONIDE 180 MCG INH SCH (08:05)
[2017-10-20] MEDS ORDERED: LEVALBUTEROL 1.25 MG/3 ML NEB NEB PRN (08:15)
[2017-10-20] MEDS ORDERED: LEVALBUTEROL 1.25 MG/3 ML NEB ONE (08:26)
[2017-10-20] MEDS: FORMOTEROL 20 MCG/2 ML NEB NEB SCH ×2 (08:35→17:00)
[2017-10-20] MEDS: BUDESONIDE 0.5 MG/2 ML NEB NEB SCH ×2 (08:35→17:00)
[2017-10-20] MEDS ORDERED: FORMOTEROL 20 MCG/2 ML NEB NEB SCH (09:00)
[2017-10-20] MEDS ORDERED: PANTOPRAZOLE SOD 40 MG IV VIAL IVP SCH (09:00)
[2017-10-20] MEDS: METOPROLOL TART 5 MG/5 ML VIAL IVP PRN (09:16)
[2017-10-20] MEDS: ENOXAPARIN 100 MG/ML SYR SC SCH ×2 (09:17→20:29)
[2017-10-20] MEDS: NS(*) 0.9% 1000 ML BAG 1,000 ML IV PRN (11:01)
[2017-10-20] MEDS ORDERED: FLUCONAZOLE 200 MG/100ML PRMIX 100 ML IVPB ONE (11:15)
--- NOTE | 2017-10-20 11:26 | Hospitalist Progress Note ---
Subjective Progress Notes Subjective She did well with BIPAP o/n and requested it be off. She then became more somnolent, so it is back. Still very low UOP. Physical Exam Vital Signs Date Time Temp Pulse Resp B/P (MAP) Pulse Ox O2 Delivery O2 Flow Rate FiO2 10/20/17 11:04 112 10/20/17 11:00 17 116/83 (94) 91 10/20/17 10:00 Bi-PAP 50.0 10/20/17 09:30 97.2 10/20/17 05:00 6.0 Intake and Output 10/21/17 07:00 Intake Total 345 ml Output Total 125 ml Balance 220 ml IV Total 345 ml Output Urine Total 125 ml General Appearance: No Acute Distress, Other (Mild tachypnea.) Neuro: Other (Opens eyes to voice. Sleepy.) Cardiovascular: Other (Tachy, irreg, distant heart tones) Respiratory: Clear to Auscultation GI: Soft and Non-Tender Extremities: Edema (1+ pitting on post thigh near buttocks bilaterally) Result Diagram: 10/20/17 0500 10/20/17 0500 Assessment and Plan Problems: (1) Altered mental status Assessment & Plan: Certainly, CO2 retention is a major contributor. See below. Might need to repeat the head CT if not improving. (2) COPD (chronic obstructive pulmonary disease) Status: Chronic Assessment & Plan: She is on chronic treatment with Advair. She appears to be a CO2 retainer at baseline. Now having an increased CO2 that is responding to BIPAP. Likely, having some pulmonary congestion and narcotic effect that is contributing to the rise. Narcotics have been stopped. She has received a dose of Lasix. Her medical power of staff attorney reports that she is DNR/DNI. (3) Hyponatremia Status: Acute Assessment & Plan: She presented with 3-4 days of worsening mental status. She was found to have a severely low serum sodium. This was likely secondary to dehydration and compounded by her history of colectomy and diuretic use. She had received Cymbalta starting on 10/01, but she didn't take very long secondary to nausea. She has received 900cc of 3% saline and has been switched to normal saline. Na+ has been improving at a slow rate. Repeat urine studies show continued slight concentrated urine. Echo pending. TSH wnl. (4) Hyperkalemia Status: Acute Assessment & Plan: It has progressively been increasing. Likely, related to poor UOP and respiratory acidosis. Will follow. (5) Atrial fibrillation and flutter Status: Chronic Assessment & Plan: She is in chronic a-fib. She has been on chronic treatment with sotalol and Eliquis. Sotalol stopped as she is in persistent a-fib. Now getting prn metoprolol because of increased rate and not safe for oral intake. Getting Lovenox for prophylaxis. (6) Vaginal discharge Status: Chronic Assessment & Plan: Bloody, mucous discharge that has been persistent for some time, per family. Will give a one time dose of Diflucan. (7) Moderate to severe pulmonary hypertension Status: Chronic Assessment & Plan: An echocardiogram from April 2017 showed an elevated right ventricular pressure of 111mmHg. Daily weights are ordered. (8) Depression Assessment & Plan: She had been started on duloxetine recently, but reportedly stopped this after 3 days. Exam Sepsis Risk: Severe Sepsis Risk AMRIK SOMMERS MD October 20, 2017 11:26
--- NOTE | 2017-10-20 12:05 | Medical Nutrition Therapy ---
Nutrition Monitoring & Eval RD Patient Assessment Time: [address] Assessment Type: RD Assessment Patient Nutrition Acuity: 2-Moderate Follow Up Date: October 22, 2017 Nutritional Comment: 10/16 Pt admitted for Hyponatremia. Na+ 116, Mg 2.6, Alk Phos 283. Class I obesity with BMI of 30.6. Receiving ROBIN with no reports of intake. Follow labs, intake, etc.-DRT 10/18 Na+ level slowly increasing and now at 125. Glu 114, Ca+ 8.1. Pt seems to be tolerating ROBIN - 2 trays left in care of nurse and 1 meal consumed at 100%. Encourage intake, follow labs, etc, -LEONARD MATTHEWS October 20, 2017 12:05
[2017-10-20] MEDS ORDERED: DIGOXIN 0.5 MG/2 ML AMP IVP ONE (18:00)
--- NOTE | 2017-10-20 20:18 | RADIOLOGY IMAGING REPORT ---
FACILITY: PATIENT NAME: Stephanie Warner : 1940 MR: [id number] V: [id number] EXAM DATE: ORDERING PHYSICIAN: AMRIK SOMMERS TECHNOLOGIST: Location: [facility] Patient: Stephanie Warner : 1940 Visit/Account:[id number] Date of Sevice: 10/20/2017 EXAMINATION: CT head without IV contrast HISTORY: Increased confusion. TECHNIQUE: Axial CT images of the head were obtained from the vertex to the skull base without IV c ontrast, with coronal and sagittal 2D reconstructed images. One of the following dose optimization techniques was utilized in the performance of this exam: Autom ated exposure control; adjustment of the mA and/or kV according to the patient's size; or use of an i terative reconstruction technique. Specific details can be referenced in the facility's radiology C T exam operational policy. COMPARISON: 10/16/2017. FINDINGS: There is stable mild patchy low attenuation in the deep white matter, compatible with chronic small v essel ischemic change. Intracranial vascular calcifications. No CT evidence of intracranial hemorrhage, mass lesion, or acute infarct. No midline shift or extra-a xial fluid collections. Fu-white differentiation is maintained. The calvarium is intact. Mild mucosal thickening in the right maxillary sinus. The partially visualiz ed paranasal sinuses and mastoid air cells are otherwise unopacified. IMPRESSION: Stable exam. No CT evidence of acute intracranial pathology. Report Dictated By: Erlin Dooley MD at 10/20/2017 8:10 PM Report E-Signed By: Erlin Dooley MD at 10/20/2017 8:15 PM WSN:[id number]
--- NOTE | 2017-10-20 20:51 | Miscellaneous Provider Note ---
Miscellaneous Provider Note Note She has been on BIPAP all day. She has remained very somnolent, but still responsive to voice. She did not have much increase in her UOP with 40mg of Lasix IV. Vital Signs Label Value Date Time Patient Temperature 98.2 degrees F 10/20/171929 Temperature Source Core 10/20/171929 Pulse 97 10/20/171929 Location Both Finger Pulse 106 10/20/171944 Location Both Finger Blood Pressure Assessment 128/89 (102) 10/20/171929 Location Right Arm Source BP Device Blood Pressure Assessment 117/78 (91) 10/20/171944 Bedside Pulse Oximetry 96 % 10/20/171929 Bedside Pulse Oximetry 97 % 10/20/171944 Item Value Date Time Oxygen Delivery Method Bi-PAP 10/20/171929 Fraction of Inspired Oxygen (FiO2) 55.0 % 10/20/171929 Item Value Date Time Arterial Blood pH 7.24 L 10/20/17 1015 Arterial Blood Partial Pressure CO2 57 mmHg *H 10/20/17 1015 Arterial Blood Partial Pressure O2 72 mmHg 10/20/17 1015 Arterial Blood HCO3 25 mmol/L 10/20/17 1015 Arterial Blood Oxygen Saturation 92 % 10/20/17 1015 Arterial Blood pH 7.28 L 10/20/17 1747 Arterial Blood Partial Pressure CO2 53 mmHg *H 10/20/17 1747 Arterial Blood Partial Pressure O2 59 mmHg L 10/20/17 1747 Arterial Blood HCO3 25 mmol/L 10/20/17 1747 Arterial Blood Oxygen Saturation 87 % L 10/20/17 1747 Sodium Level 129 mmol/L L 10/20/17 1358 Potassium Level 5.5 mmol/L H 10/20/17 1358 Chloride Level 94 mmol/L L 10/20/17 1358 Carbon Dioxide Level 23 mmol/L 10/20/17 1358 Blood Urea Nitrogen 17 mg/dl 10/20/17 1358 Creatinine 0.90 mg/dl 10/20/17 1358 Glomerular Filtration Rate Calc > 60.0 10/20/17 1358 Calcium Level 8.7 mg/dl 10/20/17 1358 Lactate 1.9 mmol/L 10/20/[address] - Stable exam. No CT evidence of acute intracranial pathology. She remains somnolent, which seems to be related to elevated CO2 despite improvement in the CO2 with BIPAP. Certainly, pulmonary congestion is contributing. Will give Lasix 80mg IV. Will consider a thoracentesis to help with respirations if unable to diurese. Plan was discussed with the patient's . AMRIK SOMMERS MD October 20, 2017 20:51
[2017-10-20] MEDS ORDERED: FUROSEMIDE 100 MG/10 ML VIAL IVP ONE (22:20)
[2017-10-21] VITALS (34 sets, daily range): BP systolic 98–135; BP diastolic 63–105
[2017-10-21] MEDS: METOPROLOL TART 5 MG/5 ML VIAL IVP PRN (01:04)
[2017-10-21] MEDS: NS(*) 0.9% 1000 ML BAG 1,000 ML IV PRN (03:56)
[2017-10-21 05:31] LABS: PLATELET COUNT, AUTOMATED 235 K/uL (150-450)
[2017-10-21 05:35] LABS: INR 2.29
[2017-10-21] MEDS: BUDESONIDE 0.5 MG/2 ML NEB NEB SCH (05:55)
[2017-10-21] MEDS: FORMOTEROL 20 MCG/2 ML NEB NEB SCH (05:55)
--- NOTE | 2017-10-21 06:42 | RADIOLOGY IMAGING REPORT ---
FACILITY: [facility] PATIENT NAME: Stephanie Warner : 1940 MR: [id number] V: [id number] EXAM DATE: ORDERING PHYSICIAN: AMRIK SOMMERS TECHNOLOGIST: Location: [facility] Patient: Stephanie Warner : 1940 Visit/Account:[id number] Date of Sevice: 10/21/2017 CHEST SINGLE AP Additional pertinent History: CO2 retention COMPARISON STUDIES: 10/21/2017 FINDINGS: Support lines and catheters: EKG wire leads and oxygen tubing Lungs and Pleura: Persistent bibasilar opacities compatible with by basilar effusions and underlying volume loss/consolidative change. No interval change in overall appearance of the chest when compare d to previous study. Heart and vasculature: Central vasculature is slightly less engorged with less perihilar interstitia l pulmonary edema Carlene and Mediastinum: Negative. Bones and Chest wall: Negative. Upper Abdomen: Negative. IMPRESSION: 1. Improvement in the degree of central vascular engorgement and perihilar interstitial pulmonary bonny ma. 2. Persistent bibasilar effusions and consolidative changes unchanged when compared to previous study . Report Dictated By: Sean Nascimento MD at 10/21/2017 6:36 AM Report E-Signed By: Sean Nascimento MD at 10/21/2017 6:38 AM WSN:[id number]
--- NOTE | 2017-10-21 08:04 | EKG ---
FACILITY: [facility] - [place] PATIENT NAME: ATUL SPEAR : [id number] MR: [id number] V: [id number] EXAM DATE: ORDERING PHYSICIAN: TOVA CLARK TECHNOLOGIST: LISA Dalton Reason : TELEY CHANGES Blood Pressure : / mmHG Vent. Rate : 097 BPM Atrial Rate : 375 BPM P-R Int : 000 ms QRS Dur : 098 ms QT Int : 342 ms P-R-T Axes : 000 086 257 degrees QTc Int : [address] and T wave abnormality, consider inferior ischemia or digitalis effect Abnormal ECG Confirmed by OTVA CLARK ([id number]) on 10/21/2017 9:03:58 PM Referred By: EDUARDO Confirmed By:TOVA CLARK
[2017-10-21] MEDS ORDERED: MORPHINE 2 MG/ML SYR IVP PRN (08:05)
[2017-10-21] MEDS ORDERED: NS(*) 0.9% 1000 ML BAG 1,000 ML IV PRN (08:25)
[2017-10-21] MEDS: MORPHINE 2 MG/ML SYR IVP PRN ×6 (08:59→17:46)
--- NOTE | 2017-10-21 10:56 | Hospitalist Progress Note ---
Subjective Progress Notes Subjective Stephanie has now stated she would rather see to her comfort than pursue any further aggressive evaluations/treatments. Physical Exam Vital Signs Date Time Temp Pulse Resp B/P (MAP) Pulse Ox O2 Delivery O2 Flow Rate FiO2 10/21/17 09:00 98 21 111/71 (84) 92 High-Flow Nasal Cannula 3.0 10/21/17 08:30 55.0 10/21/17 07:00 98.6 Intake and Output 10/22/17 07:00 Output Total 910 ml Balance -910 ml Output Urine Total 910 ml General Appearance: Alert, Awake Neuro: Other (generalized weakness) Cardiovascular: Other (Irregular with systolic murmur) Respiratory: Other (few rales at bases/no wheezes) GI: Other (soft/BS present) Extremities: Warm, Perfused, Edema Result Diagram: 10/21/17 0505 10/21/17 0505 Assessment and Plan Problems: (1) Moderate to severe pulmonary hypertension Status: Chronic Assessment & Plan: An echocardiogram from April 2017 showed an elevated right ventricular pressure of 111mmHg. Repeat echocardiogram this admission shows similar findings. She now has evidence of hepatic congestion/worsening hepatic function. I discussed further evaluation and potential treatment with Stephanie and her family. At this point, she states she does not want to pursue any further evaluations or treatments and would like to transition into comfort care. She does understand her medical conditions will probably worsen and she will probably in the near future. Her family is in agreement with her decisions. (2) COPD (chronic obstructive pulmonary disease) Status: Chronic Assessment & Plan: She has been on chronic treatment with Advair. She has been having significant CO2 retention. She is DNR/DNI. She has been on the BIPAP for the past few days, but has not tolerated it very well. Her CO2 level has improved somewhat, but has not returned to normal/baseline. She has now decided that she does not want to continue the BiPAP or any other aggressive interventions, but would prefer to transition to comfort care/end-of-life care. This certainly seems reasonable given her multiple medical conditions. (3) Hyponatremia Status: Acute Assessment & Plan: She presented with 3-4 days of worsening mental status. She was found to have a severely low serum sodium. This was likely secondary to dehydration and compounded by her history of colectomy and diuretic use. Her sodium level has improved somewhat with IV fluids. (4) Hyperkalemia Status: Acute Assessment & Plan: Improved today. It had been progressively been increasing. Likely, related to poor UOP and respiratory acidosis. (5) Atrial fibrillation and flutter Status: Chronic Assessment & Plan: She is in chronic a-fib. She has been on chronic treatment with sotalol and Eliquis. We have now stopped her medications as she will transition to comfort care/end-of-life care. (6) Depression Assessment & Plan: She had been started on duloxetine recently, but reportedly stopped this after 3 days due to intolerance/side effects. Exam Sepsis Risk: Sepsis Risk TOVA CLARK MD October 21, 2017 10:56
[2017-10-21] MEDS: LORazepam 2 MG/ML VIAL IVP PRN ×3 (12:56→16:47)
--- NOTE | 2017-10-21 15:13 | RADIOLOGY IMAGING REPORT ---
FACILITY: [facility] PATIENT NAME: ATUL SPEAR : [id number] MR: [id number] V: [id number] EXAM DATE: [id number] ORDERING PHYSICIAN: TOVA CLARK TECHNOLOGIST: Tamica Talley EXAMINATION:TWO-DIMENSIONAL ECHOCARDIOGRAPH REASON:PULMONARY HTN/HYPONATREMIA 2D Measurements (normal values in centimeters) LV endLV endRV endVent.LV PostAorticLeftPercent DiastolicSystolicDiastolicSeptumWallRootAtriumShortening (3.5-5.7)(0.9-2.6)(0.6-1.1)(0.6-1.1)(2.0-3.7)(1.9-4.0)(25-35%) [id number]% STROKE VOLUME: 33ml ESTIMATED EJECTION FRACTION:66% LEFT VENTRICLE: Moderate LVH without LVOT obstruction, ejection fraction 60-65%. Difficult to assess diastolic function due to persistent atrial fibrillation throughout study. RIGHT VENTRICLE: Moderate to severely dilated, reduced function. RIGHT ATRIUM: Severely dilated. LEFT ATRIUM: Severely dilated. No evidence of intra atrial shunting. AORTIC VALVE: Sclerotic without significant stenosis, mild aortic regurgitation. PULMONIC VALVE: Poorly seen, but no significant stenosis or regurgitation. MITRAL VALVE: Shows some mild annular calcification, no significant stenosis but mild regurgitation. TRICUSPID VALVE: Moderate to severe tricuspid regurgitation: RVSP estimated at 112mm Hg, IVC is dilated & noncompressible. Estimated right atrial pressure of > 20mm Hg. PERICARDIUM: There is a trace pericardial effusion without tamponade. There is a large left pleural effusion noted. AORTA: Size appears within normal limits without aneurysm. OVERALL IMPRESSION: 1. Ejection fraction 60-65% with moderate LVH. 2. Severely dilated right ventricle with reduced ejection fraction. 3. Severe pulmonary hypertension with an RVSP of 112mm Hg. 4. Mild mitral regurgitation. 5. Moderate to severe tricuspid regurgitation. 6. Mild aortic insufficiency. 7. Large left pleural effusion. When compared to prior 04/03/17 essentially unchanged. Dictated by: Nayan Wheat M.D. on 10/20/2017 at 15:12 Transcribed by: ANITHA on 10/21/2017 at 7:16 Approved by: Nayan Wheat M.D. on 10/21/2017 at 15:12 [facility]
--- NOTE | 2017-10-21 18:34 | Death Summary ---
Pronounced Date: October 21, 2017 Pronounced Time: 18:30 Preliminary Cause of : Chronic Obstructive Pulmonary Disease Severe Pulmonary Hypertension Assessment: Hyponatremia Chronic Back Pain Ulcerative Colitis Chronic Atrial Fibrillation History of Depression History of Present Illness Please see admission history and physical for details. Hospital Course She presented with 3-4 days of worsening mental status. She was found to have a severely low serum sodium. This was likely secondary to dehydration and compounded by her history of colectomy and diuretic use. Her sodium level improved somewhat with IV fluids. Unfortunately, she was having significant CO2 retention related to her chronic lung disease. She was DNR/DNI. She had been on the BIPAP for the past few days, but had not tolerated it very well. Her CO2 level improved somewhat, but did not returned to normal/baseline. She then decided that she did not want to continue the BiPAP or any other aggressive interventions, but would prefer to transition to comfort care/end-of-life care. This certainly seemed reasonable given her multiple medical conditions. An echocardiogram from April 2017 showed an elevated right ventricular pressure of 111mmHg. Repeat echocardiogram this admission shows similar findings. She now had evidence of hepatic congestion/worsening hepatic function. I discussed further evaluation and potential treatment with Stephanie and her family. At this point, she stated she did not want to pursue any further evaluations or treatments and would like to transition into comfort care. She did understand her medical conditions would probably worsen and she would probably in the near future. Her family was in agreement with her decisions. She was treated with IV analgesics, anxiolytics, antiemetics as needed for any noxious symptoms. She fairly quickly declined without the BiPAP. She was found without spontaneous respirations or heart tones and pronounced at 1830hrs on . Copies to: YESSENIA MILLER MD Medical Records to be sent: Summary TOVA CLARK MD October 21, 2017 18:34
== END 2017-10-21 18:30 | disposition expired | DRG 640 ==
LOC: ER 14:32 → ICU 17:37
PROVIDERS: ADMIT Family Medicine; ATTEND Family Medicine
PROC: 5A09357 Assistance with Respiratory Ventilation, Less than 24 Consecutive Hours, Continuous Positive Airway Pressure (ICD-10-PCS; principal; 2017-10-16)
DX: E87.1 Hypo-osmolality and hyponatremia (principal); J96.02 Acute respiratory failure with hypercapnia; K51.90 Ulcerative colitis, unspecified, without complications; E86.0 Dehydration; G89.29 Other chronic pain; I48.2 Chronic atrial fibrillation; Z66 Do not resuscitate; Z51.5 Encounter for palliative care; J44.9 Chronic obstructive pulmonary disease, unspecified; I27.20 Pulmonary hypertension, unspecified; E87.5 Hyperkalemia; E87.2 Acidosis; T40.605A Adverse effect of unspecified narcotics, initial encounter; T50.2X5A Adverse effect of carbonic-anhydrase inhibitors, benzothiadiazides and other diuretics, initial encounter; K76.1 Chronic passive congestion of liver; F32.9 Major depressive disorder, single episode, unspecified; Z88.5 Allergy status to narcotic agent; Z88.8 Allergy status to other drugs, medicaments and biological substances; Z88.7 Allergy status to serum and vaccine; Z87.891 Personal history of nicotine dependence; Z96.89 Presence of other specified functional implants; Z79.01 Long term (current) use of anticoagulants; Z98.1 Arthrodesis status; Z90.49 Acquired absence of other specified parts of digestive tract; Z99.81 Dependence on supplemental oxygen
CPT/HCPCS: 36415; 36600; 70450; 71045; 81001; 82040; 82140; 82247; 82310; 82374; 82435; 82550; 82565; 82803; 82947; 83605; 83735; 83930; 83935; 84075; 84132; 84155; 84295; 84300; 84443; 84450; 84460; 84484; 84520; 85025; 85610; 93005; 93306; 94640; 94660; 99285; C1758; C9113; J0131; J1160; J1450; J1650; J1940; J2060; J2270; J2405; J2550; J3490; J3535; J7030; J7606; J7626

== ENCOUNTER → 2017-10-16 | Outpatient (CLI) | payer MEDICARE, OTHER ==
[2017-10-18 11:02] VITALS: BMI 30.5
== END ==
LOC: AMB 14:00
PROVIDERS: ATTEND Nurse Practitioner
DX: R53.1 Weakness (principal); R41.82 Altered mental status, unspecified; R23.0 Cyanosis
CPT/HCPCS: A0425; A0427